=== PATIENT | male | born 1995 | race Caucasian/White ===

== ENCOUNTER 2020-02-07 10:30 | Outpatient (CLI) | payer BC ==
--- NOTE | 2020-02-07 11:15 | RAD ---
RIGHT SHOULDER 3 VIEWS: HISTORY: Shoulder pain. FINDINGS: No fracture or dislocation. AC joint normally aligned. IMPRESSION: No acute finding. POS: [id number]
== END 2020-02-07 10:31 | disposition home or self-care (01) ==
LOC: BICRAD 10:30
PROVIDERS: ATTEND Specialist
DX: M25.511 Pain in right shoulder (principal)